=== PATIENT | female | born 2000 | race Caucasian/White ===

== ENCOUNTER 2024-01-15 19:07 | Inpatient (IN) | payer BC ==
[2024-01-15 19:28] VITALS: BMI 25.0
[2024-01-15] MEDS ORDERED: Calcium Gluc 4.6 MEQ/10 ML (100 MG/ML) SLOW IVP PRN (19:50)
[2024-01-15] MEDS ORDERED: Lorazepam 2 MG/ML VIAL SLOW IVP PRN (19:50)
[2024-01-15] MEDS ORDERED: Labetalol HCl 100 MG/20 ML VIAL SLOW IVP PRN ×2 (19:50)
[2024-01-15] MEDS ORDERED: Ondansetron PF 4 MG/2 ML Vial IVP PRN (19:52)
[2024-01-15] MEDS ORDERED: Promethazine HCl 25 MG/ML VIAL IM PRN (19:52)
[2024-01-15] MEDS ORDERED: hydrALAZINE 20 MG/ML VIAL SLOW IVP PRN (19:52)
[2024-01-15] MEDS: hydrALAZINE 20 MG/ML VIAL ONE (19:58)
[2024-01-15] MEDS ORDERED: Magnesium Sulfate 20 gm/500 ml 20 GM/500 ML BAG IVPB SCH (20:00)
[2024-01-15 20:11] LABS: #Basophils 0.07 10x3/uL (0.0-0.2); #Eosinphils 0.61 10x3/uL (0.0-0.5); #Monocytes 0.74 10x3/uL (0.0-1.1); #Neutrophils 9.75 10x3/uL (1.5-8.4); %Basophils 0.5 % (0.0-2.0); %Eosinophils 4.5 % (0.0-6.0); %Lymphocytes 17.1 % (18.0-47.0); %Monocytes 5.5 % (0.0-10.0); %Neutrophils 72.1 % (40.0-75.0); Hematocrit 34.3 % (34.9-44.5); Hemoglobin 12.1 g/dL (12.0-15.5); Mean Corpuscular HGB CONC 35.3 g/dL (32.0-36.0); Mean Corpuscular Hemoglobin 30.5 pg (27.0-33.0); Mean Corpuscular Volume 86.4 fL (81.6-98.3); Mean Platelet Volume 9.6 fL (7.4-10.4); Platelet Count 214 10x3/uL (150-450); RBC Distribution Width 12.6 % (11.5-14.5); Red Blood Cell (RBC) Count 3.97 10x6/uL (3.90-5.03); White Blood Cell (WBC) Count 13.5 10x3/uL (3.5-10.5)
[2024-01-15 20:18] LABS: ALT (SGPT) 71 U/L (8-55); AST (SGOT) 68 U/L (5-34); Albumin 2.9 g/dL (3.5-5.0); Alkaline Phosphatase 64 U/L (40-110); Anion Gap 13 mmol/L (10-20); BUN (Urea Nitrogen) 18 mg/dL (7.0-18.7); Bilirubin, Total 0.4 mg/dL (0.2-1.2); Calc. Creatinine Clearance 115 mL/min (70-130); Calcium 8.9 mg/dL (7.8-10.44); Carbon Dioxide 20 mmol/L (22-29); Chloride 106 mmol/L (98-107); Estimated GFR 112; Globulin 3.3 g/dL (2.4-3.5); Glucose 98 mg/dL (70-105); Potassium 3.8 mmol/L (3.5-5.1); Protein, Total 6.2 g/dL (6.0-8.3); Sodium 135 mmol/L (136-145)
[2024-01-15] MEDS: Magnesium Sulfate 20 gm/500 ml 20 GM/500 ML BAG IVPB SCH (20:20)
[2024-01-15] MEDS: NIFEdipine XL 30 MG ER.TAB PO SCH (21:58)
[2024-01-15] MEDS: Zolpidem Tartrate 5 MG TAB PO PRN (22:31)
[2024-01-16] MEDS ORDERED: Simethicone Chewable 80 MG TAB PO PRN (00:16)
[2024-01-16] MEDS ORDERED: diphenhydrAMINE 50 MG/ML VIAL IVP PRN (00:16)
[2024-01-16] MEDS ORDERED: HYDROcodone/Acetaminophen 5/325 mg Tablet PO PRN (00:16)
[2024-01-16] MEDS: Betamet Acet/Betamet Na Ph 30 MG/5 ML VIAL IM SCH (00:30)
[2024-01-16] MEDS: Metoclopramide HCl 10 MG (2 mL) VIAL IVP PRN (00:47)
[2024-01-16] MEDS: Famotidine/PF 20 mg/2ml Vial SLOW IVP PRN (00:49)
[2024-01-16] MEDS: fentaNYL 50 mcg/mL 1 mL Vial SLOW IVP PRN (00:52)
[2024-01-16 04:12] LABS: Hematocrit 36.5 % (34.9-44.5); Hemoglobin 12.6 g/dL (12.0-15.5); Mean Corpuscular HGB CONC 34.5 g/dL (32.0-36.0); Mean Corpuscular Hemoglobin 30.1 pg (27.0-33.0); Mean Corpuscular Volume 87.3 fL (81.6-98.3); Mean Platelet Volume 9.5 fL (7.4-10.4); Platelet Count 190 10x3/uL (150-450); RBC Distribution Width 12.8 % (11.5-14.5); Red Blood Cell (RBC) Count 4.18 10x6/uL (3.90-5.03); White Blood Cell (WBC) Count 12.2 10x3/uL (3.5-10.5)
[2024-01-16 04:20] LABS: INR-International Normal Ratio 0.8; PTT 29.8 sec (22.0-33.0); Prothrombin Time 9.1 sec (9.5-12.1)
[2024-01-16 04:24] LABS: ALT (SGPT) 89 U/L (8-55); AST (SGOT) 86 U/L (5-34); Albumin 2.7 g/dL (3.5-5.0); Alkaline Phosphatase 66 U/L (40-110); Anion Gap 10 mmol/L (10-20); BUN (Urea Nitrogen) 13 mg/dL (7.0-18.7); Bilirubin, Total 0.3 mg/dL (0.2-1.2); Calc. Creatinine Clearance 122 mL/min (70-130); Calcium 7.7 mg/dL (7.8-10.44); Carbon Dioxide 22 mmol/L (22-29); Chloride 105 mmol/L (98-107); Estimated GFR 120; Globulin 3.2 g/dL (2.4-3.5); Glucose 97 mg/dL (70-105); Potassium 4.2 mmol/L (3.5-5.1); Protein, Total 5.9 g/dL (6.0-8.3); Sodium 133 mmol/L (136-145)
[2024-01-16 04:28] LABS: Critical Call Chemistry NUR.SC15@0427; Magnesium 6.1 mg/dL (1.6-2.6)
[2024-01-16] MEDS: Levothyroxine Sodium 75 MCG TAB PO SCH (06:43)
[2024-01-16] MEDS ORDERED: Ipratropium/Albuterol 3 ML NEB NEB PRN (08:21)
[2024-01-16] MEDS ORDERED: Ventolin HFA Inhaler 60 PUFF INHALER INH PRN (08:21)
[2024-01-16] MEDS ORDERED: Albuterol 2.5 MG (3 mL) NEB NEB PRN (08:21)
[2024-01-16] MEDS ORDERED: NIFEdipine XL 30 MG ER.TAB PO SCH (09:00)
[2024-01-16] MEDS: NIFEdipine XL 30 MG ER.TAB PO SCH (09:23)
[2024-01-16] MEDS: Docusate 100 MG CAP PO SCH (09:33)
[2024-01-16] MEDS: Prenatal Vitamin 1 TAB PO SCH (09:33)
[2024-01-16] MEDS: valACYclovir 500 MG TAB PO SCH (09:40)
[2024-01-16 10:33] LABS: #Basophils 0.02 10x3/uL (0.0-0.2); #Eosinphils 0.01 10x3/uL (0.0-0.5); #Monocytes 0.08 10x3/uL (0.0-1.1); #Neutrophils 8.49 10x3/uL (1.5-8.4); %Basophils 0.2 % (0.0-2.0); %Eosinophils 0.1 % (0.0-6.0); %Lymphocytes 9.1 % (18.0-47.0); %Monocytes 0.8 % (0.0-10.0); %Neutrophils 89.3 % (40.0-75.0); Hemoglobin 13.1 g/dL (12.0-15.5); Mean Corpuscular HGB CONC 35.4 g/dL (32.0-36.0); Mean Corpuscular Volume 87.7 fL (81.6-98.3); Mean Platelet Volume 9.3 fL (7.4-10.4); Platelet Count 187 10x3/uL (150-450); RBC Distribution Width 12.9 % (11.5-14.5); Red Blood Cell (RBC) Count 4.22 10x6/uL (3.90-5.03); White Blood Cell (WBC) Count 9.5 10x3/uL (3.5-10.5)
[2024-01-16 10:49] LABS: ALT (SGPT) 83 U/L (8-55); AST (SGOT) 73 U/L (5-34); Albumin 2.8 g/dL (3.5-5.0); Alkaline Phosphatase 67 U/L (40-110); Anion Gap 18 mmol/L (10-20); BUN (Urea Nitrogen) 12 mg/dL (7.0-18.7); Bilirubin, Total 0.3 mg/dL (0.2-1.2); Calc. Creatinine Clearance 114 mL/min (70-130); Calcium 7.5 mg/dL (7.8-10.44); Carbon Dioxide 17 mmol/L (22-29); Chloride 105 mmol/L (98-107); Estimated GFR 110; Globulin 3.4 g/dL (2.4-3.5); Glucose 113 mg/dL (70-105); Potassium 4.5 mmol/L (3.5-5.1); Protein, Total 6.2 g/dL (6.0-8.3); Sodium 135 mmol/L (136-145)
[2024-01-16 10:52] LABS: Magnesium 7.4 mg/dL (1.6-2.6)
[2024-01-16] MEDS: Lactated Ringer's 1,000 ML IV SCH (12:00)
[2024-01-16] MEDS: Acetaminophen 500 MG TAB PO PRN (14:11)
[2024-01-16 22:22] LABS: #Basophils 0.02 10x3/uL (0.0-0.2); #Eosinphils 0.01 10x3/uL (0.0-0.5); #Monocytes 0.79 10x3/uL (0.0-1.1); #Neutrophils 9.03 10x3/uL (1.5-8.4); %Basophils 0.2 % (0.0-2.0); %Eosinophils 0.1 % (0.0-6.0); %Lymphocytes 12.6 % (18.0-47.0); %Neutrophils 79.8 % (40.0-75.0); Hematocrit 33.8 % (34.9-44.5); Mean Corpuscular HGB CONC 35.5 g/dL (32.0-36.0); Mean Corpuscular Hemoglobin 30.8 pg (27.0-33.0); Mean Corpuscular Volume 86.9 fL (81.6-98.3); Mean Platelet Volume 9.2 fL (7.4-10.4); Platelet Count 188 10x3/uL (150-450); RBC Distribution Width 13.1 % (11.5-14.5); Red Blood Cell (RBC) Count 3.89 10x6/uL (3.90-5.03); White Blood Cell (WBC) Count 11.3 10x3/uL (3.5-10.5)
[2024-01-16 22:25] LABS: ALT (SGPT) 70 U/L (8-55); AST (SGOT) 53 U/L (5-34); Albumin 2.7 g/dL (3.5-5.0); Alkaline Phosphatase 63 U/L (40-110); Anion Gap 12 mmol/L (10-20); BUN (Urea Nitrogen) 12 mg/dL (7.0-18.7); Bilirubin, Total 0.2 mg/dL (0.2-1.2); Calc. Creatinine Clearance 108 mL/min (70-130); Carbon Dioxide 21 mmol/L (22-29); Chloride 105 mmol/L (98-107); Estimated GFR 104; Globulin 3.4 g/dL (2.4-3.5); Glucose 139 mg/dL (70-105); Potassium 3.9 mmol/L (3.5-5.1); Protein, Total 6.1 g/dL (6.0-8.3); Sodium 134 mmol/L (136-145)
[2024-01-16 22:33] LABS: Calcium 6.9 mg/dL (7.8-10.44); Critical Call Chemistry NUR.RRM1@2230
[2024-01-16] MEDS: Calcium Carbonate 500 MG ChewTAB PO SCH (22:45)
[2024-01-16] MEDS: traZODone HCl 50 MG TAB PO PRN (22:45)
[2024-01-17 04:52] LABS: #Basophils 0.02 10x3/uL (0.0-0.2); #Monocytes 0.19 10x3/uL (0.0-1.1); #Neutrophils 9.54 10x3/uL (1.5-8.4); %Basophils 0.2 % (0.0-2.0); %Lymphocytes 10.2 % (18.0-47.0); %Monocytes 1.7 % (0.0-10.0); %Neutrophils 87.4 % (40.0-75.0); Hematocrit 32.5 % (34.9-44.5); Hemoglobin 11.4 g/dL (12.0-15.5); Mean Corpuscular HGB CONC 35.1 g/dL (32.0-36.0); Mean Corpuscular Volume 88.3 fL (81.6-98.3); Mean Platelet Volume 9.5 fL (7.4-10.4); Platelet Count 159 10x3/uL (150-450); RBC Distribution Width 12.8 % (11.5-14.5); Red Blood Cell (RBC) Count 3.68 10x6/uL (3.90-5.03); White Blood Cell (WBC) Count 10.9 10x3/uL (3.5-10.5)
[2024-01-17 05:06] LABS: ALT (SGPT) 60 U/L (8-55); AST (SGOT) 45 U/L (5-34); Albumin 2.6 g/dL (3.5-5.0); Alkaline Phosphatase 59 U/L (40-110); Anion Gap 13 mmol/L (10-20); BUN (Urea Nitrogen) 14 mg/dL (7.0-18.7); Bilirubin, Total 0.2 mg/dL (0.2-1.2); Calc. Creatinine Clearance 107 mL/min (70-130); Calcium 7.1 mg/dL (7.8-10.44); Carbon Dioxide 19 mmol/L (22-29); Chloride 106 mmol/L (98-107); Estimated GFR 102; Glucose 120 mg/dL (70-105); Potassium 4.4 mmol/L (3.5-5.1); Protein, Total 5.6 g/dL (6.0-8.3); Sodium 134 mmol/L (136-145)
[2024-01-17] MEDS: Levothyroxine Sodium 100 MCG TAB PO SCH (05:12)
[2024-01-17] MEDS: Loratadine 10 MG TAB PO SCH (09:18)
[2024-01-18 00:18] LABS: Group B Streptococcus by PCR Not Detected (NotDetected)
[2024-01-18 06:05] LABS: #Basophils 0.03 10x3/uL (0.0-0.2); #Eosinphils 0.02 10x3/uL (0.0-0.5); #Monocytes 0.85 10x3/uL (0.0-1.1); #Neutrophils 12.25 10x3/uL (1.5-8.4); %Basophils 0.2 % (0.0-2.0); %Eosinophils 0.1 % (0.0-6.0); %Lymphocytes 14.6 % (18.0-47.0); %Monocytes 5.5 % (0.0-10.0); Hematocrit 35.5 % (34.9-44.5); Hemoglobin 12.6 g/dL (12.0-15.5); Mean Corpuscular HGB CONC 35.5 g/dL (32.0-36.0); Mean Corpuscular Hemoglobin 31.3 pg (27.0-33.0); Mean Corpuscular Volume 88.1 fL (81.6-98.3); Mean Platelet Volume 9.3 fL (7.4-10.4); Platelet Count 205 10x3/uL (150-450); RBC Distribution Width 12.9 % (11.5-14.5); Red Blood Cell (RBC) Count 4.03 10x6/uL (3.90-5.03); White Blood Cell (WBC) Count 15.5 10x3/uL (3.5-10.5)
[2024-01-18 06:18] LABS: ALT (SGPT) 56 U/L (8-55); AST (SGOT) 38 U/L (5-34); Albumin 2.8 g/dL (3.5-5.0); Alkaline Phosphatase 72 U/L (40-110); Anion Gap 15 mmol/L (10-20); BUN (Urea Nitrogen) 21 mg/dL (7.0-18.7); Bilirubin, Total 0.2 mg/dL (0.2-1.2); Calc. Creatinine Clearance 111 mL/min (70-130); Calcium 7.8 mg/dL (7.8-10.44); Carbon Dioxide 18 mmol/L (22-29); Chloride 108 mmol/L (98-107); Estimated GFR 107; Globulin 3.3 g/dL (2.4-3.5); Glucose 92 mg/dL (70-105); Potassium 4.7 mmol/L (3.5-5.1); Protein, Total 6.1 g/dL (6.0-8.3); Sodium 136 mmol/L (136-145)
[2024-01-18] MEDS ORDERED: Docusate 100 MG CAP PO PRN (08:18)
[2024-01-19 06:27] LABS: #Basophils 0.05 10x3/uL (0.0-0.2); #Eosinphils 0.08 10x3/uL (0.0-0.5); #Monocytes 0.75 10x3/uL (0.0-1.1); #Neutrophils 7.46 10x3/uL (1.5-8.4); %Basophils 0.4 % (0.0-2.0); %Eosinophils 0.7 % (0.0-6.0); %Lymphocytes 26.5 % (18.0-47.0); %Monocytes 6.6 % (0.0-10.0); %Neutrophils 65.2 % (40.0-75.0); Hemoglobin 10.7 g/dL (12.0-15.5); Mean Corpuscular HGB CONC 33.4 g/dL (32.0-36.0); Mean Corpuscular Hemoglobin 30.1 pg (27.0-33.0); Mean Corpuscular Volume 89.9 fL (81.6-98.3); Mean Platelet Volume 9.2 fL (7.4-10.4); Platelet Count 186 10x3/uL (150-450); RBC Distribution Width 13.2 % (11.5-14.5); Red Blood Cell (RBC) Count 3.56 10x6/uL (3.90-5.03); White Blood Cell (WBC) Count 11.4 10x3/uL (3.5-10.5)
[2024-01-19 06:41] LABS: ALT (SGPT) 62 U/L (8-55); AST (SGOT) 49 U/L (5-34); Albumin 2.3 g/dL (3.5-5.0); Alkaline Phosphatase 55 U/L (40-110); Anion Gap 10 mmol/L (10-20); BUN (Urea Nitrogen) 21 mg/dL (7.0-18.7); Bilirubin, Total 0.2 mg/dL (0.2-1.2); Calc. Creatinine Clearance 119 mL/min (70-130); Calcium 7.8 mg/dL (7.8-10.44); Carbon Dioxide 20 mmol/L (22-29); Chloride 109 mmol/L (98-107); Estimated GFR 116; Globulin 2.5 g/dL (2.4-3.5); Glucose 81 mg/dL (70-105); Potassium 4.8 mmol/L (3.5-5.1); Protein, Total 4.8 g/dL (6.0-8.3); Sodium 134 mmol/L (136-145)
[2024-01-19] MEDS: Polyethylene Glycol 3350 17 GM Packet PO PRN (08:34)
[2024-01-19] MEDS: hydrALAZINE 20 MG/ML VIAL SLOW IVP PRN (21:20)
[2024-01-19] MEDS: Bisacodyl 10 MG SUPP PR PRN (21:45)
[2024-01-19] MEDS ORDERED: hydrALAZINE 20 MG/ML VIAL SLOW IVP PRN ×2 (22:27)
[2024-01-19] MEDS ORDERED: Lorazepam 2 MG/ML VIAL SLOW IVP PRN ×2 (22:27→22:47)
[2024-01-19] MEDS ORDERED: Calcium Gluc 4.6 MEQ/10 ML (100 MG/ML) SLOW IVP PRN ×2 (22:27→22:47)
[2024-01-19 22:54] LABS: Hematocrit 38.2 % (34.9-44.5); Hemoglobin 13.2 g/dL (12.0-15.5); Mean Corpuscular HGB CONC 34.6 g/dL (32.0-36.0); Mean Corpuscular Hemoglobin 30.8 pg (27.0-33.0); Mean Corpuscular Volume 89.3 fL (81.6-98.3); Mean Platelet Volume 9.8 fL (7.4-10.4); Platelet Count 245 10x3/uL (150-450); RBC Distribution Width 12.9 % (11.5-14.5); Red Blood Cell (RBC) Count 4.28 10x6/uL (3.90-5.03); White Blood Cell (WBC) Count 14.8 10x3/uL (3.5-10.5)
[2024-01-19] MEDS ORDERED: Magnesium Sulfate 20 gm/500 ml 20 GM/500 ML BAG IVPB SCH (23:00)
[2024-01-19 23:02] LABS: ALT (SGPT) 83 U/L (8-55); AST (SGOT) 66 U/L (5-34); Albumin 2.8 g/dL (3.5-5.0); Alkaline Phosphatase 76 U/L (40-110); Anion Gap 13 mmol/L (10-20); BUN (Urea Nitrogen) 22 mg/dL (7.0-18.7); Bilirubin, Total 0.3 mg/dL (0.2-1.2); Calc. Creatinine Clearance 110 mL/min (70-130); Calcium 9.8 mg/dL (7.8-10.44); Carbon Dioxide 22 mmol/L (22-29); Chloride 105 mmol/L (98-107); Estimated GFR 105; Globulin 3.6 g/dL (2.4-3.5); Glucose 86 mg/dL (70-105); Potassium 4.6 mmol/L (3.5-5.1); Protein, Total 6.4 g/dL (6.0-8.3); Sodium 135 mmol/L (136-145)
[2024-01-19] MEDS ORDERED: Famotidine/PF 20 mg/2ml Vial SLOW IVP PRN (23:24)
[2024-01-19] MEDS ORDERED: Bicitra 30 ML UDCUP PO PRN (23:24)
[2024-01-19] MEDS ORDERED: CEFAZOLIN 2 GM in Sodium Chloride 0.9% 100 ML IVPB SCH (23:30)
[2024-01-19] MEDS ORDERED: Promethazine HCl 25 MG/ML VIAL IM PRN (23:35)
[2024-01-19] MEDS ORDERED: Ondansetron PF 4 MG/2 ML Vial IVP PRN ×2 (23:35)
[2024-01-19] MEDS ORDERED: Naloxone HCl 0.4 mg/ml Vial IV PRN (23:35)
[2024-01-19] MEDS ORDERED: Meperidine HCl/PF 25 MG (1 mL) VIAL SLOW IVP PRN (23:35)
[2024-01-19] MEDS ORDERED: HYDROmorphone 0.5 MG/0.5 ML SYRINGE SLOW IVP PRN (23:35)
[2024-01-19] MEDS ORDERED: Naloxone HCl 0.4 mg/ml Vial IVP PRN ×2 (23:35)
[2024-01-19] MEDS ORDERED: Moisturizing Cream (Eucerin) 113 GM JAR TOP PRN (23:35)
[2024-01-19] MEDS ORDERED: Ketorolac Tromethamine 30 MG (1 mL) VIAL IVP SCH (23:45)
[2024-01-19] MEDS ORDERED: Communication Order-Pharmacy FS SCH (23:45)
[2024-01-20 00:49] LABS: Analyzer IN Cardio CS NICU; RapidComm Collect By RN
[2024-01-20 00:51] LABS: Analyzer IN Cardio CS NICU; RapidComm Collect By RN
[2024-01-20] MEDS ORDERED: Bisacodyl 10 MG SUPP PR PRN (01:14)
[2024-01-20] MEDS ORDERED: Acetaminophen 325 MG TAB PO PRN (01:14)
[2024-01-20] MEDS ORDERED: hydrALAZINE 20 MG/ML VIAL SLOW IVP PRN (01:14)
[2024-01-20] MEDS: diphenhydrAMINE 50 MG/ML VIAL IVP PRN (03:47)
[2024-01-20] MEDS: fentaNYL 50 mcg/mL 1 mL Vial SLOW IVP PRN (03:47)
[2024-01-20] MEDS: Ketorolac Tromethamine 30 MG (1 mL) VIAL IVP PRN (07:51)
[2024-01-20] MEDS ORDERED: HYDROcodone/Acetaminophen 5/325 mg Tablet PO PRN (11:45)
[2024-01-20] MEDS: Simethicone Chewable 80 MG TAB PO SCH (13:32)
[2024-01-20] MEDS: NIFEdipine XL 30 MG ER.TAB PO SCH (13:32)
[2024-01-20] MEDS: Magnesium Sulfate 20 gm/500 ml 20 GM/500 ML BAG IVPB SCH (16:30)
[2024-01-20] MEDS: Heparin 1 UNITS/ML SYRINGE (NICU) ONE (18:18)
[2024-01-20] MEDS: Dexmedetomidine 200 MCG/2 ML VIAL ONE (18:18)
[2024-01-20] MEDS: Oxytocin 10 UNITS/ML VIAL ONE (18:19)
[2024-01-20] MEDS: fentaNYL 50 mcg/mL 1 mL Vial ONE (18:19)
[2024-01-20] MEDS: Dexamethasone 4 mg/ml Vial ONE (18:19)
[2024-01-20] MEDS: Morphine PF 10 MG/10 ML VIAL ONE (18:19)
[2024-01-20] MEDS: Ondansetron PF 4 MG/2 ML Vial ONE (18:20)
[2024-01-20] MEDS: Phenylephrine 40 MG/NS 250 ML 250 ML ONE (18:20)
[2024-01-20] MEDS: Ketorolac Tromethamine 30 MG (1 mL) VIAL ONE (18:20)
[2024-01-20] MEDS: Morphine 4 MG/ML VIAL SLOW IVP PRN (20:12)
[2024-01-21 03:33] LABS: Hematocrit 31.3 % (34.9-44.5); Hemoglobin 10.8 g/dL (12.0-15.5); Mean Corpuscular HGB CONC 34.5 g/dL (32.0-36.0); Mean Corpuscular Hemoglobin 30.5 pg (27.0-33.0); Mean Corpuscular Volume 88.4 fL (81.6-98.3); Mean Platelet Volume 9.2 fL (7.4-10.4); Platelet Count 218 10x3/uL (150-450); RBC Distribution Width 12.9 % (11.5-14.5); Red Blood Cell (RBC) Count 3.54 10x6/uL (3.90-5.03)
[2024-01-21 04:06] LABS: ALT (SGPT) 58 U/L (8-55); AST (SGOT) 46 U/L (5-34); Albumin 2.2 g/dL (3.5-5.0); Alkaline Phosphatase 55 U/L (40-110); Anion Gap 10 mmol/L (10-20); BUN (Urea Nitrogen) 15 mg/dL (7.0-18.7); Bilirubin, Total 0.2 mg/dL (0.2-1.2); Calc. Creatinine Clearance 114 mL/min (70-130); Calcium 7.5 mg/dL (7.8-10.44); Carbon Dioxide 26 mmol/L (22-29); Chloride 103 mmol/L (98-107); Estimated GFR 110; Globulin 2.8 g/dL (2.4-3.5); Glucose 109 mg/dL (70-105); Potassium 4.1 mmol/L (3.5-5.1); Sodium 135 mmol/L (136-145)
[2024-01-21] MEDS: Docusate 100 MG CAP PO SCH ×2 (06:52→20:07)
[2024-01-21] MEDS: Prenatal Vitamin 1 TAB PO SCH (06:59)
[2024-01-21] MEDS: Magnesium Sulfate 20 gm/500 ml 20 GM/500 ML BAG ONE (06:59)
[2024-01-21] MEDS: Morphine 4 MG/ML VIAL ONE (07:00)
[2024-01-21] MEDS: Ketorolac Tromethamine 30 MG (1 mL) VIAL ONE (07:01)
[2024-01-21] MEDS: Boostrix 0.5 ML (Tdap) VIAL (>/=7 yrs of age) IM ONE (07:01)
[2024-01-21] MEDS: Ibuprofen 800 MG TAB PO PRN (07:46)
[2024-01-21] MEDS: HYDROcodone/Acetaminophen 5/325 mg Tablet PO PRN (07:47)
[2024-01-21] MEDS: NIFEdipine XL 30 MG ER.TAB PO SCH (08:23)
[2024-01-21] MEDS ORDERED: hydrALAZINE 20 MG/ML VIAL SLOW IVP PRN (10:25)
[2024-01-21] MEDS: Furosemide 20 MG (2 mL) VIAL SLOW IVP SCH (12:19)
[2024-01-21] MEDS: Ibuprofen 800 MG TAB PO SCH (16:09)
[2024-01-22] MEDS: HYDROcodone/Acetaminophen 5/325 mg Tablet PO PRN (00:05)
[2024-01-22 03:52] LABS: Hematocrit 33.1 % (34.9-44.5); Hemoglobin 11.1 g/dL (12.0-15.5); Mean Corpuscular HGB CONC 33.5 g/dL (32.0-36.0); Mean Corpuscular Hemoglobin 30.3 pg (27.0-33.0); Mean Corpuscular Volume 90.4 fL (81.6-98.3); Platelet Count 225 10x3/uL (150-450); RBC Distribution Width 13.2 % (11.5-14.5); Red Blood Cell (RBC) Count 3.66 10x6/uL (3.90-5.03); White Blood Cell (WBC) Count 15.2 10x3/uL (3.5-10.5)
[2024-01-22 04:08] LABS: ALT (SGPT) 44 U/L (8-55); AST (SGOT) 31 U/L (5-34); Albumin 2.3 g/dL (3.5-5.0); Alkaline Phosphatase 54 U/L (40-110); Anion Gap 12 mmol/L (10-20); BUN (Urea Nitrogen) 13 mg/dL (7.0-18.7); Bilirubin, Total Less than 0.2 mg/dL (0.2-1.2); Calc. Creatinine Clearance 122 mL/min (70-130); Calcium 8.9 mg/dL (7.8-10.44); Carbon Dioxide 26 mmol/L (22-29); Chloride 104 mmol/L (98-107); Estimated GFR 120; Globulin 3.1 g/dL (2.4-3.5); Glucose 78 mg/dL (70-105); Potassium 4.8 mmol/L (3.5-5.1); Protein, Total 5.4 g/dL (6.0-8.3); Sodium 137 mmol/L (136-145)
[2024-01-22 11:21] VITALS: BMI 25.1
[2024-01-22] MEDS: valACYclovir 500 MG TAB PO SCH (12:32)
[2024-01-22] MEDS: NIFEdipine XL 30 MG ER.TAB PO SCH (15:45)
[2024-01-23] MEDS: Docusate 100 MG CAP PO SCH (08:53)
[2024-01-23] MEDS: Boostrix 0.5 ML (Tdap) VIAL (>/=7 yrs of age) IM ONE (08:53)
[2024-01-23] MEDS: NIFEdipine XL 60 MG ER.TAB PO SCH (09:01)
[2024-01-24 08:46] VITALS: BP 127/92; TEMP 98.3
== END 2024-01-24 16:50 | disposition home or self-care (01) | DRG 787 ==
LOC: CSHLD 19:07 → OBSVTOIN 19:52 → CSHANTE 01-16 23:00 → CSHLD 01-19 23:21 → CSHPED 01-21 09:07
PROVIDERS: ADMIT Obstetrics & Gynecology; ATTEND Obstetrics & Gynecology
PROC: 10D00Z1 Extraction of Products of Conception, Low, Open Approach (ICD-10-PCS; principal; 2024-01-20)
DX: O14.14 Severe pre-eclampsia complicating childbirth (principal); B00.89 Other herpesviral infection; O98.52 Other viral diseases complicating childbirth; E03.9 Hypothyroidism, unspecified; O99.284 Endocrine, nutritional and metabolic diseases complicating childbirth; J45.20 Mild intermittent asthma, uncomplicated; O99.52 Diseases of the respiratory system complicating childbirth; O36.5930 Maternal care for other known or suspected poor fetal growth, third trimester, not applicable or unspecified; Z79.890 Hormone replacement therapy; Z3A.28 28 weeks gestation of pregnancy; Z37.0 Single live birth; K59.09 Other constipation; O99.62 Diseases of the digestive system complicating childbirth; J30.2 Other seasonal allergic rhinitis; F41.1 Generalized anxiety disorder; F32.9 Major depressive disorder, single episode, unspecified; O99.344 Other mental disorders complicating childbirth
CPT/HCPCS: 36415; 76705; 76815; 76819; 80053; 82570; 82805; 83615; 83690; 83735; 84156; 84443; 85025; 85027; 85610; 85730; 86850; 86900; 86901; 87653; 88307; 99285; J0360; J0702; J1100; J1200; J1885; J1940; J2270; J2274; J2405; J2590; J2765; J3010; J3475; J7120; S0028